=== PATIENT | female | born 1985 | race Caucasian/White ===

== ENCOUNTER 2022-03-28 14:28 | Emergency (ER) | payer BC | END 2022-03-28 18:20 | disposition home or self-care (01) | LOC: JD.ED 14:28 → SUPCPDRO 14:28 → JD.ED 18:20 | DX: O99.891 Other specified diseases and conditions complicating pregnancy (principal); R21 Rash and other nonspecific skin eruption; Z3A.28 28 weeks gestation of pregnancy; Z86.16 Personal history of COVID-19 | CPT/HCPCS: 36415; 80053; 85025; 93970; 93970-26; 99283-25 ==